=== PATIENT | male | born 1990 | race Caucasian/White ===

== ENCOUNTER 2025-03-21 12:10 | Emergency (ER) | payer BC ==
[2025-03-21 12:44] LABS: APPEARANCE,URINE CLEAR; BASOPHILS ABSOLUTE AUTO 0.02 K/uL (0.00-0.20); BASOPHILS PERCENT AUTO 0.5 % (0.0-1.0); EOSINOPHILS ABSOLUTE AUTO 0.04 K/uL (0.00-0.45); EOSINOPHILS PERCENT AUTO 0.9 % (0.0-6.0); GLUCOSE,URINE NEGATIVE (NEGATIVE); IMMATURE GRAN ABSOLUTE AUTO 0.01 K/uL (0.00-0.05); IMMATURE GRAN PERCENT AUTO 0.2 % (0.0-0.4); LYMPHOCYTES ABSOLUTE AUTO 0.88 K/uL (1.00-4.80); LYMPHOCYTES PERCENT AUTO 20.7 % (24.0-44.0); MEAN PLATELET VOLUME 10.1 fL (9.4-12.4); MONOCYTES ABSOLUTE AUTO 0.26 K/uL (0.00-0.80); MONOCYTES PERCENT AUTO 6.1 % (0.0-8.0); NEUTROPHILS ABSOLUTE AUTO 3.04 K/uL (1.80-7.70); NEUTROPHILS PERCENT AUTO 71.6 % (41.0-71.0); NRBC ABSOLUTE 0.00 K/uL (0.00-0.02); NRBC PERCENT 0.0 /100WBC (0.0-0.2); OCCULT BLOOD,URINE NEGATIVE (NEGATIVE); PLATELET COUNT,PLT 211 K/uL (150-400); RED BLOOD CELL COUNT 3.98 M/uL (4.52-5.90); WHITE BLOOD CELL COUNT,WBC 4.25 K/uL (3.9-11.3)
[2025-03-21 12:49] LABS: EPITHELIAL CELLS,URINE RARE (NONE-FEW)
[2025-03-21 13:07] LABS: A/G RATIO 1.2 (0.9-1.6); ALANINE AMINOTRANSFERASE,ALT 73.0 IU/L (14-63); ASPARTATE AMNIOTRANSFERASE,AST 44.0 IU/L (15-37); BILIRUBIN TOTAL 0.5 mg/dL (0.2-1.0); BLOOD UREA NITROGEN,BUN 21.0 mg/dL (7.0-18.0); CARBON DIOXIDE,CO2 30.0 mmol/L (21.0-32.0); CHLORIDE,CL 101.0 mmol/L (98-107); CREATININE 1.0 mg/dL (0.8-1.3); EST CRCL DRUG DOSING (CG) 109.81 mL/min; GLUCOSE RANDOM 113.0 mg/dL (74-106); POTASSIUM,K 4.1 mmol/L (3.5-5.1); PROTEIN TOTAL,TP 7.0 g/dL (6.4-8.2); SODIUM,NA 138.0 mmol/L (136-148)
[2025-03-21 13:10] LABS: ESTIMATED GFR 101.0 mL/min (>60)
== END 2025-03-21 14:24 | disposition home or self-care (01) ==
LOC: MW.ED 12:10
DX: R10.13 Epigastric pain (principal); Z75.3 Unavailability and inaccessibility of health-care facilities; Z79.899 Other long term (current) drug therapy
CPT/HCPCS: 36415; 74176; 80053; 81001; 83690; 83735; 84484; 85025; 99284; A9270